=== PATIENT | male | born 1945 | race Caucasian/White ===

== ENCOUNTER 2017-03-17 12:43 | Emergency (ER) | payer MEDICARE ==
[~2017-03-17] VITALS: Ht 175.3 cm; Wt 110.9 kg
[2017-03-17 12:43] VITALS: BP 135/75; PULSE 70; RESP 21; O2SAT 96
[2017-03-17] MEDS ORDERED: 0.9% Sodium Chloride 1,000 ML IV ONE (14:16)
[2017-03-17 14:23] LABS: BASOPHILS % (AUTO) 0 % (0-3); EOSINOPHILS % (AUTO) 0.1 % (0-5); MONOCYTES % (AUTO) 11.1 % (4-12); Mean Corpuscular Hemoglobin 30.6 pg (27.0-35.0); Mean Corpuscular Volume 91.6 fL (81-100); NEUTROPHILS % (AUTO) 76.3 % (40-74); Platelet Count 190 bil/L (150-400)
[2017-03-17 14:46] LABS: Magnesium 1.7 mg/dL (1.6-2.6)
[2017-03-17 14:49] LABS: APPEARANCE,URINE CLEAR (CLEAR,HAZY); COLOR,URINE STRAW (YELLOW); OCCULT BLOOD,URINE MODERATE (NEGATIVE); PH,URINE 5.5 (5.0-8.0); UROBILINOGEN,URINE NORMAL (NORMAL)
[2017-03-17] MEDS: Ondansetron 2 mg/mL 2 mL Inj IVPUSH PRN ×2 (15:00→16:15)
--- NOTE | 2017-03-17 15:00 | DRSVH ---
PROCEDURE: CT KUB ([id number]) INDICATIONS: L flank pain TECHNIQUE: Noncontrast 5 mm thick sections acquired from the diaphragms to the symphysis. 5 mm thick coronal an d sagittal reformats were then performed. For radiation dose reduction, the following was used: aut omated exposure control, adjustment of mA and/or kV according to patient size. COMPARISON: None. FINDINGS: Image quality: Excellent. Lung bases: Lung bases are clear. Elevation right hemidiaphragm. Heart size is normal. Urinary system: Both kidneys are normal in size. A punctate nonobstructing calculus is present in th e anterior upper pole of the right kidney and the anterior mid body of the right kidney. A nonobstruc ting punctate calcification is present in the lower pole of the left kidney, series 4/image 45. A 9 m m exophytic hypodense mass is present over the posterior lateral margin of the lower pole left kidney , probable cyst but indeterminate. No right hydronephrosis or perinephric fat stranding. Left hydrour eteronephrosis is present secondary to a 4 mm obstructing stone at the L5 level. The calculus shows a ttenuation of 347. The right ureter appears normal. Bladder wall thickness is normal; no calcified bl adder stones. Prostate appears normal. Other solid organs: Liver and spleen are normal in size. Gallbladder is distended with no visible s tones or wall thickening.. Pancreas is normal in contours. No adrenal nodules. Peritoneum and bowel: Unenhanced bowel loops demonstrate normal wall thickness and caliber. Normal a ppendix. No free fluid or air. Nodes and vessels: No retroperitoneal or mesenteric adenopathy by size criteria. Aorta and inferior vena cava are normal in caliber. Abdominal wall: No ventral hernias. Pelvis: No free pelvic fluid. No inguinal hernias or adenopathy. Bones: No suspicious bony lesions. No vertebral body compression fractures. IMPRESSION: 1. Left hydroureteronephrosis secondary to a 4 mm obstructing calculus in the mid ureter, L5 level. 2. Mild bilateral nephrolithiasis. 3. Probable small exophytic cyst left kidney. 4. Normal appendix is identified. 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 Dictated by: Tan Moore M.D. on 03/17/2017 at 14:48 Approved by: Tan Moore M.D. on 03/17/2017 at 14:58
--- NOTE | 2017-03-17 15:15 | ED.REPORT ---
HPI-Abd Pain M 40 and Over Date of Service Mar 17, 2017 ED Provider: Rosales Hernandez MD Patient is a 72 year old male with a history of kidney stones who presents to the ED complaining of left flank pain onset two days ago. Associated symptoms include nausea, chills and an episode of emesis yesterday. He denies fever or other symptoms at this time. Patient reports that he has been unable to eat for the past two days. He describes the pain as waxing and waning and rates the pain as a 7/10. The patient states that it feels similar to when he had kidney stones before. Nursing Notes Stated Complaint: ABDOMINAL PAIN Chief Complaint: Male Abdominal Pain Nursing Notes Reviewed: Yes Allergies: Coded Allergies: aspirin (Verified Allergy, Intermediate, N/V, DIZZY, STOMACH CRAMPS, ) iodine (Verified Allergy, Mild, 03/17/17) Scheduled Tamsulosin (Flomax) 0.4 Mg Capsule 0.4 MG PO DAILY Scheduled PRN Hydrocodone-Acetaminophen 5-325 mg (Hydrocodone-Acetaminophen 5-325 mg) 1 Each Tablet 1 TABLET PO Q4H PRN PRN For Pain Ibuprofen (Ibuprofen) 600 Mg Tablet 600 MG PO QID PRN PRN For Pain General Time Seen by MD: 14:16 Chief Complaint Flank pain left Hx Obtained From: Patient Arrived By: Walk-in Sudden in Onset?: Yes Onset Occurred: 2 days ago Symptom Duration: Waxes and wanes Location: : Flank left Quality: Painful Radiation: : Does not radiate Severity: Current: Moderate Similar Sx Previous: Yes Past Medical History Past Medical History kidney stones Smoking History Unknown if Ever Smoker Ambulatory Status Independent Review of Systems Constitutional: Reports: Chills, Denies: Fever Respiratory: Denies: Non-productive cough, Shortness of breath GI: Reports: Nausea, Vomiting, Denies: Abdominal pain Male: Reports Flank pain, Denies Dysuria, Denies Hematuria Musculoskeletal: Denies: Back pain Complete sys rev & neg: except as marked. Skin: Denies Itching, Denies Rash Physical Exam Initial Vital Signs Vital Signs (First) Date Time Temp Pulse Resp B/P Pulse Ox O2 Delivery O2 Flow Rate FiO2 03/17/17 12:43 36.4 70 21 135/75 96 Room Air Initial VS: Reviewed General/Constitutional: Awake, Alert Respiratory / Chest: Atraumatic, Breath sounds NL, Breath sounds = bilat, No respiratory distress Cardiovascular: Heart rate NL, Regular rhythm, Heart sounds NL Abdomen: Atraumatic, Soft, Non-tender, No guarding, No rebound Back: Atraumatic, No CVA tenderness (minimal left side) Head / Eyes: Atraumatic, Normocephalic, PERRL, EOMI Skin: Atraumatic, Color NL, No rash, Warm, Dry Neurologic: Oriented X3, Speech NL Lower Extremity / Pelvis / MS: Atraumatic, Full range of motion Psychiatric: Affect NL, Mood NL Interpretation & Diagnostics Lab Results Interpretation Result Diagram: 03/17/17 1418 03/17/17 1418 Test 03/17/17 14:18 03/17/17 14:20 03/17/17 14:30 White Blood Count 11.4th/mm3 (3.8-10.1) Red Blood Count 5.13mil/mm3 (4.40-5.80) Hemoglobin 15.7g/dL (13.8-17.2) Hematocrit 47.0% (41.0-50.0) Mean Corpuscular Volume 91.6fL (81-100) Mean Corpuscular Hemoglobin 30.6pg (27.0-35.0) Mean Corpuscular Hemoglobin Concent 33.4% (32.0-37.0) Red Cell Distribution Width 14.1% (12.3-15.4) Platelet Count 190bil/L (150-400) Neutrophils (%) (Auto) 76.3% (40-74) Lymphocytes (%) (Auto) 12.3% (14-46) Monocytes (%) (Auto) 11.1% (4-12) Eosinophils (%) (Auto) 0.1% (0-5) Basophils (%) (Auto) 0% (0-3) Sodium Level 137mEq/L (134-144) Potassium Level 4.1mEq/L (3.5-5.2) Chloride Level 96mEq/L (97-108) Carbon Dioxide Level 25mmol/L (18-29) Blood Urea Nitrogen 16mg/dL (8-27) Creatinine 0.95mg/dL (0.76-1.27) Estimat Glomerular Filtration Rate 83mL/min (>59) Glucose Level 126mg/dL (60-99) Calcium Level 9.9mg/dL (8.5-10.1) Magnesium Level 1.7mg/dL (1.6-2.6) Total Bilirubin 0.6mg/dL (0.0-1.2) Aspartate Amino Transf (AST/SGOT) 20U/L (0-50) Alanine Aminotransferase (ALT/SGPT) 28U/L (0-44) Alkaline Phosphatase 73U/L (25-160) Total Protein 7.8g/dL (6.4-8.4) Albumin 4.4g/dL (3.4-5.0) Lipase 26U/L (13-60) Urine Color Straw (YELLOW) Urine Appearance Clear (CLEAR,HAZY) Urine pH 5.5 (5.0-8.0) Urine Specific Thompson 1.005 (1.003-1.035) Urine Protein Negativemg/dL (NEG,TRACE) Urine Glucose (UA) Negativemg/dL (NEGATIVE) Urine Ketones Negativemg/dL (NEGATIVE) Urine Occult Blood Moderate (NEGATIVE) Urine Nitrite Negative (NEGATIVE) Urine Bilirubin Negative (NEGATIVE) Urine Urobilinogen Normalmg/dL (NORMAL) Urine Leukocyte Esterase Negative (NEGATIVE) Urine RBC 0-2/hpf (0-2) Urine WBC 0-5/hpf (0-5) Urine Epithelial Cells Occasional/hpf (NONE-MOD) Urine Crystals None seen (NONE SEEN) Urine Bacteria None/hpf (NONE-FEW) Urine Hyaline Casts None/lpf (NONE) Urine Granular Casts None seen (NONE SEEN) Urine Waxy Casts None seen (NONE SEEN) Urine Red Blood Cell Casts None seen (NONE SEEN) Urine White Blood Cell Casts None seen (NONE SEEN) Urine Mucus None seen (None Seen) Urine Trichomonas None seen (NONE SEEN) Urine Yeast None (NONE SEEN) Urinalysis Comment None Urine Culture Reflexed Not indicated Hold Urine Received (Received) CT Abd / Pelvis Interpretation IMPRESSION: 1. Left hydroureteronephrosis secondary to a 4 mm obstructing calculus in the mid ureter, L5 level. 2. Mild bilateral nephrolithiasis. 3. Probable small exophytic cyst left kidney. 4. Normal appendix is identified. 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 Dictated by: Tan Moore M.D. on 03/17/2017 at 14:48 Approved by: Tan Moore M.D. on 03/17/2017 at 14:58 Interpretation / Wet Read by: Interpret - Radiologist Re-Eval/Medical Decision Med Decision/Clinical Course Left kidney stone 4 mm. Pain controlled. No evidence of infection on urine. We will treat with Flomax, pain control, follow-up with urology. Return precautions given. Time of Eval: 15:27 Re-Evaluation/Progress Note: Discussed results and plan for discharge. Patient understands and agrees to plan. All questions were addressed. Counseled Regarding: Diagnosis, Lab results, Need for follow-up, When/why to return to ED Discharge & Departure Primary Impression: Kidney stone Disposition: Home Vital Signs - All Vital Signs Date Time Temp Pulse Resp B/P Pulse Ox O2 Delivery O2 Flow Rate FiO2 03/17/17 16:10 69 20 150/68 93 Room Air 03/17/17 12:43 36.4 70 21 135/75 96 Room Air )( All Prior VS Reviewed: Yes Condition: Stable Patient Instructions: Kidney Stones (ED) Additional Instructions: Your CT scan showed that you have a kidney stone. This should pass on its own in the next few days. You can use the strainer to catch the stone. Take ibuprofen as prescribed for moderate pain. You can take 1 Hydrocodone every 6 hours as needed for severe pain. Do not combine with alcohol or drive while taking the pain medication. Do not combine with Acetaminophen. Take Flomax daily Follow up with the referred urologist later this week. Return to the emergency department if you develop any new or concerning symptoms including fever, increasing pain, inability to keep solids down or worsening symptoms. Referrals: Agustin Ornelas DO (PCP) Erna Choudhury PA-C Attestation Portions of this note were transcribed by Reema Cole. I, Dr. Hernandez personally performed the history, physical exam and medical decision-making; I reviewed and confirmed the accuracy of the information in the transcribed note. Signed by: Nita Rapp, 03/17/17. copies to: Agustin Ornelas DO; Erna Choudhury PA-C, Ben M MD Mar 17, 2017 15:15 Elyssa Cole Mar 17, 2017 15:22
[2017-03-17] MEDS ORDERED: TAMS0.4C98 PO (15:38)
[2017-03-17] MEDS ORDERED: HYDR-4003 PO (15:38)
[2017-03-17] MEDS ORDERED: IBUP-1827 PO (15:38)
[2017-03-17 16:10] VITALS: BP 150/68; PULSE 69; RESP 20; O2SAT 93
== END 2017-03-17 17:10 | disposition home or self-care (01) ==
LOC: SED 12:43
DX: N20.0 Calculus of kidney (principal); Z88.8 Allergy status to other drugs, medicaments and biological substances; Z87.442 Personal history of urinary calculi
CPT/HCPCS: 36415; 74176; 80053; 81000; 81002; 83690; 83735; 85025; 96361; 96374; 96375; 96376; 99285; G0463; J1885; J2270; J2405; J7030